=== PATIENT | male | born 1960 | race Caucasian/White ===

== ENCOUNTER → 2017-01-13 14:35 | Outpatient (CLI) | payer MEDICARE ==
[2015-02-13 23:21] VITALS: BMI 29.4
[~2017-01-13 14:35] MED LIST: ASPIRIN EC81 MG PO; BYSTOLIC10 MG PO; DUONEB 2.5-0.5 M3 ML UPD; FLEXERIL10 MG PO; LEVAQUIN750 MG PO; LOPRESSOR50 MG PO; MUCINEX600 MG PO; NORCO 5/325 TAB1 TA1 PO; NORVASC5 MG PO; PEPCID40 MG PO; PLAVIX75 MG PO; PROAIR HFA8.5 GM INH; VALIUM5 MG PO; ZANTAC150 MG PO; ZOCOR40 MG PO; ZYLOPRIM300 MG PO
== END | disposition home or self-care (01) ==
LOC: D.RAD 14:35
DX: S93.401A Sprain of unspecified ligament of right ankle, initial encounter (principal); X58.XXXA Exposure to other specified factors, initial encounter; Y93.89 Activity, other specified; Y92.89 Other specified places as the place of occurrence of the external cause

== ENCOUNTER → 2017-01-24 08:47 | Outpatient (CLI) | payer MEDICARE ==
[2015-02-13 23:21] VITALS: BMI 29.4
== END | disposition home or self-care (01) ==
LOC: D.US 08:47
DX: R04.2 Hemoptysis (principal); R16.0 Hepatomegaly, not elsewhere classified

== ENCOUNTER → 2017-07-08 13:11 | Outpatient (CLI) | payer MEDICARE ==
[2015-02-13 23:21] VITALS: BMI 29.4
[2017-07-08 14:41] LABS: BASOPHILS 0.3 % (0-2); HEMATOCRIT 46.8 % (42.0-54.0); HEMOGLOBIN 16.7 g/dL (13.5-17.5); IMMATURE GRANULOCYTES 0.3 % (0-5); LYMPHOCYTES 43.8 % (15-50); MCH 33.5 pg (26.0-34.0); MCHC 35.7 g/dL (31.0-37.0); MEAN PLATELET VOLUME 10.1 fL (7.4-10.4); MONOCYTES 10.9 % (2-11); NEUTROPHILS 42.7 % (40-80); PLATELET COUNT 210 10x3/uL (130-400); RBC 4.98 10x6/uL (4.20-6.10); RDW 14.2 % (11.5-14.5); WBC 7.4 10x3/uL (4.8-10.8)
[2017-07-09 08:21] LABS: IMMUNOGLOBULIN A 193 mg/dL (90-386); IMMUNOGLOBULIN G 964 mg/dL (700-1600); IMMUNOGLOBULIN M 64 mg/dL (20-172)
[2017-07-09 09:16] LABS: IMMUNOGLOBULIN E 269 IU/mL (0-100)
[2017-07-09 12:16] LABS: ANA REFLEX - DIRECT Negative (Negative)
[2017-07-09 22:11] LABS: ANGIOTENSIN CONVERTING ENZYME 28 U/L (14-82)
== END | disposition home or self-care (01) ==
LOC: D.RT 13:00
PROVIDERS: Internal Medicine Pulmonary Disease
DX: J44.9 Chronic obstructive pulmonary disease, unspecified (principal)

== ENCOUNTER → 2018-11-23 13:51 | Outpatient (CLI) | payer MEDICARE ==
[2015-02-13 23:21] VITALS: BMI 29.4
== END | disposition home or self-care (01) ==
LOC: D.RT 13:51
DX: J44.9 Chronic obstructive pulmonary disease, unspecified (principal); R93.89 Abnormal findings on diagnostic imaging of other specified body structures

== ENCOUNTER 2020-03-27 09:54 | Emergency (ER) | payer MEDICARE ==
[~2020-03-27] VITALS: Ht 177.8 cm; Wt 83.6 kg
[~2020-03-27 09:54] MED LIST changes: +CYCLOBENZAPRINE10 MG PO; +NORCO-7.51 TAB PO
[2020-03-27 09:58] VITALS: Ht 177.8 cm; Wt 83.6 kg
[2020-03-27] MEDS ORDERED: CLINDAMYCIN HC300 MG PO (10:32)
[2020-03-27] MEDS ORDERED: HYDROCODON-ACE1 EA10 PO (10:32)
[2020-03-27 11:04] VITALS: BP 120/58
== END 2020-03-27 11:05 | disposition home or self-care (01) ==
LOC: D.ER 09:54
DX: L02.31 Cutaneous abscess of buttock (principal)

== ENCOUNTER 2020-07-23 21:50 | Inpatient (IN) | payer MEDICARE ==
[~2020-07-23] VITALS: Ht 177.8 cm; Wt 88.2 kg
[~2020-07-23 21:50] MED LIST changes: +CLINDAMYCIN HC300 MG PO; +HYDROCODON-ACE1 EA10 PO
[2020-07-23 22:08] VITALS: BP 152/77
[2020-07-23 22:21] LABS: BASOPHILS 0.3 % (0-2); EOSINOPHILS 3.4 % (0-7); HEMATOCRIT 45.8 % (42.0-54.0); HEMOGLOBIN 16.2 g/dL (13.5-17.5); IMMATURE GRANULOCYTES 0.3 % (0-5); LYMPHOCYTES 32.4 % (15-50); MCH 33.2 pg (26.0-34.0); MCHC 35.4 g/dL (31.0-37.0); MCV 93.9 fL (80.0-100.0); MEAN PLATELET VOLUME 9.9 fL (7.4-10.4); MONOCYTES 11.1 % (2-11); NEUTROPHILS 52.5 % (40-80); PLATELET COUNT 185 10x3/uL (130-400); RBC 4.88 10x6/uL (4.20-6.10); RDW 13.9 % (11.5-14.5); WBC 7.1 10x3/uL (4.8-10.8)
[2020-07-23 22:28] LABS: CALC OSMOLALITY 257 mosm/kg (275-300); CARBON DIOXIDE 25.6 mmol/L (21.0-32.0); CHLORIDE - SERUM 99 mmol/L (98-107); CREATININE - SERUM 0.9 mg/dL (0.6-1.3); GLUCOSE 106 mg/dL (74-106); POTASSIUM - SERUM 3.9 mmol/L (3.5-5.1); SODIUM 130 mmol/L (136-145); UREA NITROGEN 5 mg/dL (7-18); eGFR NON AFRICAN AMERICAN > 90 mL/min (90-120)
[2020-07-23 22:32] LABS: APTT 27.2 SECONDS (22.8-39.4); INR 0.96 (0.85-1.17); PROTIME 12.7 SECONDS (11.6-15.0)
[2020-07-23 22:43] LABS: ALBUMIN 3.7 g/dL (3.4-5.0); ALKALINE PHOSPHATASE 75 U/L (30-120); ALT (SGPT) 75 U/L (10-68); BILIRUBIN - TOTAL 0.73 mg/dL (0.2-1.3); CKMB 1.4 U/L (0.0-3.6); CREATINE KINASE 110 UL (21-232); PROTEIN - SERUM 7.8 g/dL (6.4-8.2); TROPONIN-I 0.023 ng/mL (0.000-0.060)
[2020-07-23 23:00] VITALS: BP 140/76
[2020-07-24] VITALS: BP 146/74
[2020-07-24 01:09] VITALS: BP 145/77
--- NOTE | 2020-07-24 03:00 | NUR ---
PT LAYING IN BED ALERT AND ORIENTED. 02 IN USE.RESP ARE EVEN ET UNLABORED.PT STATES SOB WITH EXERTION.HEARTRATE IS REGULAR.PT HAS A SLIGHT TREMOR TO ZARA HANDS. PT STATES FAIR APPETITE.IV TO LEFT FOREARM WITHPOUT S/S OF INFILTRATION.PT HAS DIARRHEA.NO BLOOD NOTED.CALLBELL IN REACH.SIDERAILS UP X2.
[2020-07-24 04:03] VITALS: BP 136/76
[2020-07-24 06:15] LABS: CKMB 1.2 U/L (0.0-3.6); CREATINE KINASE 103 UL (21-232); PRO BNP 190 pg/mL (0-125); TROPONIN-I 0.022 ng/mL (0.000-0.060)
[2020-07-24 08:17] LABS: BASOPHILS 0.3 % (0-2); EOSINOPHILS 2.7 % (0-7); HEMATOCRIT 44.9 % (42.0-54.0); HEMOGLOBIN 15.5 g/dL (13.5-17.5); IMMATURE GRANULOCYTES 0.2 % (0-5); LYMPHOCYTES 32.3 % (15-50); MCH 32.8 pg (26.0-34.0); MCHC 34.5 g/dL (31.0-37.0); MCV 95.1 fL (80.0-100.0); MEAN PLATELET VOLUME 10.1 fL (7.4-10.4); MONOCYTES 12.1 % (2-11); NEUTROPHILS 52.4 % (40-80); PLATELET COUNT 193 10x3/uL (130-400); RBC 4.72 10x6/uL (4.20-6.10); WBC 6.3 10x3/uL (4.8-10.8)
[2020-07-24 08:38] VITALS: BP 148/80
[2020-07-24 11:51] VITALS: BP 146/79
[2020-07-24 12:27] LABS: CKMB 1.3 U/L (0.0-3.6); CREATINE KINASE 95 UL (21-232); TROPONIN-I < 0.017 ng/mL (0.000-0.060)
[2020-07-24 12:57] VITALS: Ht 177.8 cm; Wt 88.2 kg
[2020-07-24 17:10] LABS: CKMB 1.2 U/L (0.0-3.6); CREATINE KINASE 87 UL (21-232)
--- NOTE | 2020-07-24 19:30 | NUR ---
PT LAYING IN BED RESTING QUIETLY. PT STATES HE HAS PAIN TO CHEST AREA.DESCRIBES PAIN A PRESSURE. RATES PAIN A 6 ON PAIN SCALE.HAS 02 @ 3L/M PER NASAL CANNULA.RESP ARE EVEN ET UNLABORED. HEARTRATE IS REGULAR.IVTO RIGHT FOREARM PATENT, FLUSHED.NO S/S OF INFILTRATION.PT CONTINUES TO HAVE DIARRHEA.CALLBELL IN REACH.SIDERAILS UP X2.WILL CONTINUE TO MONITOR.
[2020-07-24 20:00] VITALS: BP 139/75
--- NOTE | 2020-07-24 21:04 | NUR ---
PT LAYING IN BED RESTING .PT GIVEN PM MEDS. PT GIVEN MORPHINE 4 MG IV FOR PAIN.WILL CONTINUE TO MONITOR.SAFETY MEASURES ARE IN PLACE.
[2020-07-25] VITALS: BP 128/83
--- NOTE | 2020-07-25 00:45 | NUR ---
PT LAYING IN BED RESTING QUIETLY WITH EYES CLOSED.02 IN USE. RESP ARE EVN ET UNLABORED.SAFETY MEASURES ARE IN PLACE.WILL CONTINUE TO MONITOR.
[2020-07-25 04:00] VITALS: BP 123/81
--- NOTE | 2020-07-25 04:54 | NUR ---
PT LAYING IN BED RESTING QUIETLY.EYES CLOSED.RESP ARE UNLABORED.IV INFUSING WITHOUT S/S OF INFILTRATION.NO DISTRESS NOTED
[2020-07-25 06:49] LABS: BASOPHILS 0.3 % (0-2); EOSINOPHILS 3.5 % (0-7); HEMATOCRIT 42.2 % (42.0-54.0); HEMOGLOBIN 14.5 g/dL (13.5-17.5); IMMATURE GRANULOCYTES 0.2 % (0-5); LYMPHOCYTES 31.2 % (15-50); MCH 32.7 pg (26.0-34.0); MCHC 34.4 g/dL (31.0-37.0); MCV 95.3 fL (80.0-100.0); MEAN PLATELET VOLUME 9.9 fL (7.4-10.4); MONOCYTES 10.1 % (2-11); NEUTROPHILS 54.7 % (40-80); PLATELET COUNT 170 10x3/uL (130-400); RBC 4.43 10x6/uL (4.20-6.10); RDW 13.7 % (11.5-14.5)
[2020-07-25 07:22] LABS: ALKALINE PHOSPHATASE 60 U/L (30-120); ALT (SGPT) 57 U/L (10-68); BILIRUBIN - TOTAL 0.72 mg/dL (0.2-1.3); CALCIUM 8.3 mg/dL (8.5-10.1); CARBON DIOXIDE 24.2 mmol/L (21.0-32.0); CHLORIDE - SERUM 100 mmol/L (98-107); CREATININE - SERUM 0.8 mg/dL (0.6-1.3); GLUCOSE 99 mg/dL (74-106); MAGNESIUM - SERUM 2.4 mg/dL (1.8-2.4); POTASSIUM - SERUM 3.7 mmol/L (3.5-5.1); PROTEIN - SERUM 6.6 g/dL (6.4-8.2); SODIUM 134 mmol/L (136-145); eGFR NON AFRICAN AMERICAN > 90 mL/min (90-120)
[2020-07-25 07:23] LABS: CALC OSMOLALITY 266 mosm/kg (275-300); UREA NITROGEN 9 mg/dL (7-18)
[2020-07-25 09:52] VITALS: BP 138/78
--- NOTE | 2020-07-25 10:26 | NUR ---
I have reviewed this patient and I concur with the Shift Assessment completed by the Licensed Practical Nurse today this shift.
[2020-07-25 20:00] VITALS: BP 118/67
--- NOTE | 2020-07-25 20:30 | NUR ---
REPORT RECIEVED AND ROUNDING COMPLETE. PATIENT LAYING IN BED IN LOW MENDIETA POSITION. PATIENT IS SHAKY AND STATES IT IS FROM DT'S, ASKS FOR ATIVAN WHEN I BRING HIS NIGHT MEDICATIONS, WILL TREAT PER MAR. WENT OVER NPO STATUS AT MIDNIGHT FOR STRESS TEST IN THE MORNING. PATIENT HE KNOWS AND THAT HE FULLY UNDERSTANDS. SHERIDAN HAS A LEFT FOREARM PIV THAT IS SALINE LOCKED AT THIS TIME. NASAL CANNULA IN PLACE WITH O2 AT 2.5L. NO DISTRESS NOTED. PATIENT THEN TELLS NURSE NOT TO BRING SUPPOSITORY BECAUSE HE DOSENT WANT ANYONE BY HIS "HOLE" BUT HE WILL USE THE CREAM. NO OTHER NEEDS AT THIS TIME. CALL LIGHT WITHIN REACH AND BED IN LOWEST LOCKED POSITION.
[2020-07-26] VITALS: BP 129/69
[2020-07-26 04:00] VITALS: BP 117/70
[2020-07-26 05:40] LABS: BASOPHILS 0.3 % (0-2); EOSINOPHILS 3.1 % (0-7); HEMATOCRIT 40.8 % (42.0-54.0); HEMOGLOBIN 13.5 g/dL (13.5-17.5); IMMATURE GRANULOCYTES 0.1 % (0-5); LYMPHOCYTES 26.5 % (15-50); MCH 31.9 pg (26.0-34.0); MCHC 33.1 g/dL (31.0-37.0); MCV 96.5 fL (80.0-100.0); PLATELET COUNT 165 10x3/uL (130-400); RBC 4.23 10x6/uL (4.20-6.10); WBC 6.8 10x3/uL (4.8-10.8)
[2020-07-26 06:13] LABS: ALKALINE PHOSPHATASE 58 U/L (30-120); ALT (SGPT) 54 U/L (10-68); BILIRUBIN - TOTAL 0.63 mg/dL (0.2-1.3); CALC OSMOLALITY 269 mosm/kg (275-300); CALCIUM 8.2 mg/dL (8.5-10.1); CARBON DIOXIDE 25.3 mmol/L (21.0-32.0); CHLORIDE - SERUM 104 mmol/L (98-107); CREATININE - SERUM 0.9 mg/dL (0.6-1.3); GLUCOSE 104 mg/dL (74-106); MAGNESIUM - SERUM 2.5 mg/dL (1.8-2.4); POTASSIUM - SERUM 3.9 mmol/L (3.5-5.1); PROTEIN - SERUM 6.5 g/dL (6.4-8.2); SODIUM 136 mmol/L (136-145); UREA NITROGEN 7 mg/dL (7-18); eGFR NON AFRICAN AMERICAN > 90 mL/min (90-120)
[2020-07-26 08:28] VITALS: BP 129/72
[2020-07-26 20:00] VITALS: BP 117/62
[2020-07-27] VITALS: BP 121/67
[2020-07-27 04:00] VITALS: BP 123/69
[2020-07-27 05:42] LABS: BASOPHILS 0.1 % (0-2); EOSINOPHILS 1.4 % (0-7); HEMATOCRIT 40.5 % (42.0-54.0); HEMOGLOBIN 13.5 g/dL (13.5-17.5); IMMATURE GRANULOCYTES 0.2 % (0-5); LYMPHOCYTES 27.7 % (15-50); MCH 32.3 pg (26.0-34.0); MCHC 33.3 g/dL (31.0-37.0); MCV 96.9 fL (80.0-100.0); MONOCYTES 8.8 % (2-11); NEUTROPHILS 61.8 % (40-80); PLATELET COUNT 179 10x3/uL (130-400); RBC 4.18 10x6/uL (4.20-6.10); RDW 14.1 % (11.5-14.5)
[2020-07-27 05:54] LABS: ALBUMIN 3.1 g/dL (3.4-5.0); ALKALINE PHOSPHATASE 59 U/L (30-120); ALT (SGPT) 54 U/L (10-68); CALC OSMOLALITY 276 mosm/kg (275-300); CALCIUM 8.2 mg/dL (8.5-10.1); CARBON DIOXIDE 21.4 mmol/L (21.0-32.0); CHLORIDE - SERUM 105 mmol/L (98-107); CREATININE - SERUM 0.9 mg/dL (0.6-1.3); GLUCOSE 111 mg/dL (74-106); MAGNESIUM - SERUM 2.7 mg/dL (1.8-2.4); POTASSIUM - SERUM 3.7 mmol/L (3.5-5.1); PROTEIN - SERUM 6.8 g/dL (6.4-8.2); SODIUM 139 mmol/L (136-145); UREA NITROGEN 7 mg/dL (7-18); eGFR NON AFRICAN AMERICAN > 90 mL/min (90-120)
[2020-07-27 06:00] LABS: WBC 8.8 10x3/uL (4.8-10.8)
--- NOTE | 2020-07-27 07:15 | NUR ---
REC'D IN BED AWAKE AND ALERT. RESP EVEN AND UNLABORED WITH DISTRESS NOTED. CAN EXPRESS NEEDS AND WANTS WITH NO C/O NOTED OR VOICED. ASSESSMENT COMPLETED. C/L IN REACH AT BEDSIDE.
[2020-07-27 09:18] VITALS: BP 129/66
[2020-07-27] MEDS ORDERED: ISOSORBIDE MONO30 M1 PO (11:44)
[2020-07-27] MEDS ORDERED: DALIRESP250 MCG PO (11:45)
[2020-07-27] MEDS ORDERED: TESSALON PERLE100 MG PO (11:45)
[2020-07-27] MEDS ORDERED: PULMICORT0.5 MG/21 UPD (11:45)
[2020-07-27] MEDS ORDERED: SINGULAIR10 MG PO (11:45)
[2020-07-27] MEDS ORDERED: PREDNISONE10 MG PO (11:46)
[2020-07-27] MEDS ORDERED: ANUSOL-HC 2.5%30 GM TOPICAL (11:46)
[2020-07-27] MEDS ORDERED: ANUSOL-HC25 MG RC (11:46)
[2020-07-27] MEDS ORDERED: NICODERM CQ1 EAC3 TRANSDERM (11:46)
[2020-07-27] MEDS ORDERED: VITAMIN B-1100 M1 PO (11:47)
[2020-07-27] MEDS ORDERED: FOLIC ACID1 MG PO (11:47)
[2020-07-27 12:30] VITALS: BP 114/63
--- NOTE | 2020-07-27 13:36 | NUR ---
DC HOME AT THIS TIME WITH ALL PERSONAL BELONGS. IV DC. STABLE CONDITION UPON DEPARTURE
--- NOTE | 2020-07-27 13:38 | NUR ---
I have reviewed this patient and I concur with the Shift Assessment completed by the Licensed Practical Nurse today this shift.
== END 2020-07-27 13:39 | disposition home or self-care (01) | DRG 303 ==
LOC: D.ER 21:50 → D.M2 07-24 00:46 → OBSVTIME 07-24 00:47 → D.MS 07-25 15:01 → D.M2 07-25 15:15 → D.MS 07-26 23:42
PROVIDERS: Emergency Medicine; Family Medicine; ADMIT Family Medicine; ATTEND Family Medicine
DX: I25.110 Atherosclerotic heart disease of native coronary artery with unstable angina pectoris (principal); E87.1 Hypo-osmolality and hyponatremia; F17.203 Nicotine dependence unspecified, with withdrawal; J44.1 Chronic obstructive pulmonary disease with (acute) exacerbation; K62.5 Hemorrhage of anus and rectum; M19.90 Unspecified osteoarthritis, unspecified site; G89.29 Other chronic pain; K44.9 Diaphragmatic hernia without obstruction or gangrene; Z72.89 Other problems related to lifestyle; F12.90 Cannabis use, unspecified, uncomplicated; E78.5 Hyperlipidemia, unspecified; G47.61 Periodic limb movement disorder; G47.36 Sleep related hypoventilation in conditions classified elsewhere; K64.9 Unspecified hemorrhoids